=== PATIENT | female | born 1935 | race Caucasian/White ===

== ENCOUNTER 2020-10-16 11:18 | Emergency (ER) | payer SELFPAY ==
--- OUTSIDE RECORDS SUMMARY | 2020-10-16 11:20 | XMS REPORT | Continuity of Care Document ---
:1935 Author Organization [facility] t Address [address] [place] [address] Care Team Providers Name Role Phone Mendy JOE Primary Care Physician Unavailable Mendy Joe MD Attending Clinician Mendy JOE Attending Clinician Unavailable Hiren BROWN Attending Clinician Rajeev CRENSHAW Attending Clinician HIREN Attending Clinician Unavailable Maurice CRENSHAW Attending Clinician Diana MCCORMICK K Attending Clinician Unavailable Payers Payer Name Policy Type Policy Effective Date Expiration Date Sour ce Number AETNA MEDICAREAETNA [id number] 2016 MD Mercedes hdz MEDICARE 00:00:00 [id number] -PresentMedicare Problems Condition Condition Condition Status Onset Resolution Last Treating Co mments Source Name Details Category Date Date Treatment Clinician Date Dementia Dementia Disease Active 2019-06 0-14 Anderso 00:00: n 00 Memory Memory Disease Active 2019-06 loss loss 0-14 Anderso 00:00: n 00 Vitamin D Vitamin D Disease Active 2017-06 MD deficiency deficiency 0-17 An derso 00:00: n 00 Osteoporos Osteoporos Disease Active M D is is 6-15 Anderso 00:00: n 00 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 Family History Family Member Diagnosis Comments Start Date Stop Date Source Natural mother -Lymphoma MD Norma brown Social History Social Habit Start Date Stop Date Quantity Comments Source Sex Assigned At F MD Santillan on Tobacco use and 2019-07-11 2019-07-11 Never used MD Santillan on exposure 00:00:00 00:00:00 Alcohol intake 2019-07-11 2019-07-11 Current drinker of MD Bales 00:00:00 00:00:00 alcohol (finding) Alcohol Comment 2015-11-14 2015-11-14 Occasional MD Santillan on 00:00:00 00:00:00 Smoking Status Start Date Stop Date Source Never smoker MD Bales Medications Ordered Filled Start Stop Current Ordering Indication Dosage Frequency Signature Comments Components Source Medication Medication Date Date Medication? Clinician (SIG) Name Name anastrozole Yes Infiltratin TAKE 1 MD (ARIMIDEX) 1-04 g duct TABLET BY An derso 1 mg tablet 00:00: carcinoma MOUTH n 00 of upper EVERY DAY outer quadrant of left female breast risedronate 2019-06 Yes Osteoporosi 150mg TAKE 1 MD (ACTONEL) 2-16 s TABLET Anderso 150 mg 00:00: (150 MG) n tablet 00 BY MOUTH EVERY 30 (THIRTY) DAYS. WITH WATER ON EMPTY STOMACH, NOTHING BY MOUTH OR LIE DOWN FOR NEXT 30 MINUTES. brimonidine 2019-06 Yes open angle 1[drp] Administer MD -timolol 0-21 glaucoma 1 drop to An derso (COMBIGAN) 13:25: both eyes n 0.2-0.5 % 39 every 12 ophthalmic (twelve) solution hours. glaucoma bimatoprost 2019-06 Yes 1[drp] Administer MD (LUMIGAN) 0-21 1 drop to Delio so 0.01% 13:25: the right n ophthalmic 39 eye at drops bedtime. memantine 2019-06 Yes 1{tbl} Take 1 MD (NAMENDA) 5 0-12 tablet by And erso mg tablet 00:00: mouth n 00 daily. LORazepam 2019-06 Yes 1{tbl} Take 1 MD (ATIVAN) 0-12 tablet by Tyrell o 0.5 mg 00:00: mouth as n tablet 00 needed. Only for upcoming MRI cranberry Yes 500mg Take 500 MD 500 mg cap 2-10 mg by Anderso 15:11: mouth n 52 daily. olmesartan 2018-06 Yes 40mg Take 40 mg M D (BENICAR) 2-19 by mouth Tyrell o 40 mg 00:00: daily. n tablet 00 risedronate 2018-06 Osteoporosi 150mg Take 1 MD (ACTONEL) 1-22 12-16 s tablet Anderso 150 mg 00:00: 00:00 (150 mg) n tablet 00 :00 by mouth every 30 (thirty) days. with water on empty stomach, nothing by mouth or lie down for next 30 minutes. anastrozole 2018-06 Infiltratin 1mg Take 1 MD (ARIMIDEX) 0-23 01-04 g duct tablet (1 A nderso 1 mg tablet 00:00: 00:00 carcinoma mg) by n 00 :00 of upper mouth outer daily. quadrant of left female breast hydroCHLORO 2018-06 Yes TAKE 1 MD thiazide 0-04 TABLET BY Tyrell o (HYDRODIURI 00:00: MOUTH n L) 12.5 mg 00 EVERY DAY tablet amLODIPine Yes TAKE 1 MD (NORVASC) 5 9-21 TABLET BY And erso mg tablet 00:00: MOUTH n 00 EVERY DAY ergocalcife 2017-06 Yes Vitamin D 05129G Take 1 MD rol 02 deficiency, capsule Delio so (DRISDOL) 00:00: not (50,000 n 50,000 00 otherwise Units) by units specified mouth capsule every 7 days. simvastatin 2017-06 Yes 40mg Take 40 mg MD (ZOCOR) 40 0-10 by mouth Delio so mg tablet 00:00: every n 00 evening. losartan Yes 100mg Take 100 MD (COZAAR) 3-21 mg by Anderso 100 mg 00:00: mouth n tablet 00 daily. Immunizations Ordered Immunization Filled Immunization Date Status Commen ts Source Name Name Pfizer SARS-CoV-2 2020-07-29 Completed Fracisco rson Vaccination 00:00:00 Pfizer SARS-CoV-2 2020-07-08 Completed Fracisco rson Vaccination 00:00:00 Vital Signs Vital Name Observation Time Observation Value Comments Source WEIGHT 2020-03-21 08:20:46 52.3 kg WEIGHT 2020-03-21 08:20:46 52.3 kg Systolic blood pressure 2020-03-21 13:20:46 155 mm[Hg] MD Bales Diastolic blood pressure 2020-03-21 13:20:46 88 mm[Hg] MD Bales Heart rate 2020-03-21 13:20:46 85 /min MD Delio milian Body temperature 2020-03-21 13:20:46 37 [place] MD Abhinav bautista Respiratory rate 2020-03-21 13:20:46 16 /min MD Abhinav bautista Body weight 2020-03-21 13:20:46 52.3 kg MD Kebede maicol BMI 2020-03-21 13:20:46 21.57 kg/m2 MD Delio milian Oxygen saturation in 2020-03-21 13:20:46 98 /min MD Bales Arterial blood by Pulse oximetry Procedures Procedure Date / Time Performed Performing Clinician Sourc e MAMMO DIGITAL DIAGNOSTIC 2020-03-21 12:31:46 Latonya Maradiaga MD BILATERAL Encounters Start End Encounter Admission Attending Care Care Encounter Source Date/Time Date/Time Type Type Clinicians Facility Department ID 2020-07-29 2020-07-29 Outpatient FELIPE JOE MARYSOL GREGG [id number] 09:11:35 09:51:34 OLIVIER brown 2020-07-08 2020-07-08 Outpatient FELIPE JOEMARYSOL MDA [id number] 08:12:14 08:32:09 OLIVIER brown 2020-03-21 2020-03-21 Outpatient FELIPE MARYSOL MARADIAGA MDA [id number] 06:53:51 23:59:00 LATONYA borwn 2020-03-21 2020-03-21 Outpatient FELIPE MARYSOL MARADIAGA MDA [id number] 07:42:29 09:22:29 LATONYA brown Results Test Description Test Time Test Comments Results Result Sourc e Comments Mammography 2020-03-02 There is no MD Bales Digital 1 mammographic evidence Diagnostic 12:35:29 of malignancy. Bilateral Follow-up mammogram in 1 year is recommended. BI-RADS Category 2:Benign Finding(s) Interface, Radiology Results In 03/21/2020 7:35 AM CDTCLINICAL INDICATION:Patient is a 84 year old female and is seen for history of breast cancer MAMMO DIGITAL DIAGNOSTIC BILATERALCOMPARISON:Th e present examination has been compared to prior imaging studies performed atan outside location on 12/27/2013 and 01/19/2015, and at [facility] on 03/12/2015, 03/19/2016, 03/18/2017, 03/17/2018 and03/23/2019. FINDINGS:There are scattered areas of fibroglandular density. There is a post surgical scar with associated surgical clips in the left breast. In the right breast, no dominant mass, distortion, or suspicious calcificationsare identified. IMPRESSION:There is no mammographic evidence of malignancy. Follow-up mammogram in 1 year is recommended. BI-RADS Category 2:Benign Finding(s)
--- NOTE | 2020-10-16 13:34 | ER ---
Nurse's Notes [facility] Name: Denise Beard Age: 85 yrs Sex: Female : 1935 Arrival Date: 10/16/2020 Time: 11:21 Bed Waiting Private MD: Collette Richard F Diagnosis: Presentation: 10/16 11:34 Chief complaint: Patient's son or daughter states: She fell last night when she went to [facility] the bathroom, fell into the tub, did not hit her head but reports left shoulder tenderness. Pt reports feeling weak all over,denies N/V/D, denies urinary symptoms, denies CP, denies SOB. Coronavirus screen: Client denies travel out of the [place] in the last 14 days. At this time, the client does not indicate any symptoms associated with coronavirus-19. Ebola Screen: No symptoms or risks identified at this time. Initial Sepsis Screen: Does the patient meet any 2 criteria? No. Patient's initial sepsis screen is negative. Does the patient have a suspected source of infection? No. Patient's initial sepsis screen is negative. Risk Assessment: Do you want to hurt yourself or someone else? Patient reports no desire to harm self or others. Onset of symptoms was October 15, 2020. Care prior to arrival: None. 11:34 Method Of Arrival: Ambulatory [facility] 11:34 Acuity: DIANNA 3 jl7 Triage Assessment: 11:39 General: Appears in no apparent distress. uncomfortable, Behavior is calm, cooperative, jl7 appropriate for age. Pain: Denies pain. Neuro: Level of Consciousness is awake, alert, obeys commands. Cardiovascular: Denies chest pain, Patient's skin is warm and dry. Respiratory: Airway is patent Respiratory effort is even, unlabored, Respiratory pattern is regular, symmetrical. Derm: Skin is pink, warm \T\ dry. Historical: - Allergies: 11:39 No Known Allergies; jl7 - Home Meds: 11:39 memantine 10 mg oral tab 1 tab 2 times per day [Active]; hydrochlorothiazide 25 mg Oral jl7 tab 1 tab once daily [Active]; Simvastatin Oral [Active]; Combigan 0.2-0.5 % ophthalmic drop 1 drop every 12 hours [Active]; olmesartan oral oral [Active]; donepezil 10 mg oral tab 1 tab once daily [Active]; atenolol 25 mg Oral tab 1 tab once daily [Active]; - PMHx: 11:39 Dementia; Hypertension; High Cholesterol; jl7 - PSHx: 11:39 Lumpectomy; jl7 - Immunization history:: Adult Immunizations up to date, Client reports receiving the 2nd dose of the Covid vaccine. - Social history:: Smoking status: Patient denies any tobacco usage or history of. Vital Signs: 11:34 BP 150 / 84; Pulse 61; Resp 17 S; Temp 98.3(O); Pulse Ox 100% on R/A; Weight 53.52 kg jl7 (R); Height 5 ft. 2 in. (157.48 cm); Pain 2/10; 11:34 Body Mass Index 21.58 (53.52 kg, 157.48 cm) jl7 ED Course: 11:21 Patient arrived in ED. mr 11:21 Collette Richard MD is Private Physician. mr 11:37 Triage completed. jl7 11:39 Arm band placed on right wrist. Patient placed in waiting room, in view of staff jl7 members, Patient notified of wait time. 13:33 Patient's name was called from ER lobby. No response. Unable to locate patient. Will jl7 disposition as left without being seen by a provider. Administered Medications: No medications were administered Outcome: 13:33 Patient left the ED. jl7 Signatures: Danyell AlfordalAkbar, RN RN jl7
[2020-10-16 14:06] VITALS: BP 150/84; TEMP 98.3; O2SAT 100
== END 2020-10-16 13:33 | disposition left against medical advice (07) ==
LOC: ER 11:18
DX: Z02.9 Encounter for administrative examinations, unspecified (principal)
CPT/HCPCS: 99281